=== PATIENT | male | born 1985 | race African-American/Black ===

== ENCOUNTER 2016-08-26 13:26 | Emergency (ER) ==
[2016-08-26] MEDS ORDERED: NORCO-10 PO ONE (13:49)
--- NOTE | 2016-08-26 13:56 | PROVIDER DOCUMENTATION ---
HPI-Musculoskeletal Pain/Inj - GENERAL Chief Complaint: Extremity Injury Stated Complaint: EXREMITY INJURY Time Seen by Provider: 08/26/16 13:44 Source: patient - HX OF PRESENT ILLNESS-MUSKULOSKELTAL Nature of Presenting Problem: Pt is 31 y/o M presents to the ED with R hand pain. Pt states was helping move furniture and furniture fell on top of R hand. 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 Quality of Pain: reports: aching Severity in ED: mild Onset/Duration: just prior to arrival Timing: still present, intermittent Modifying Factors: improves with: nothing Any recent injury?: Yes (direct blow ) Locality of Occurance: Home Similar Symptoms Previously?: No Recently seen or treated by another doctor?: No - UPPER EXTREMITY PAIN/INJURY Extremities Pain Location: hand: right (pain ) Context / Method of Injury: reports: direct blow Associated Symptoms: reports: weakness in upper ext (R hand). denies: muscle spasms, numbness in upper ext, sensory/motor loss, tingling in upper ext Review of Systems - Adult - REVIEW OF SYSTEMS - ADULT Constitutional: denies: chills, fever Eyes: denies: blurred vision, double vision Ears, Nose, Mouth & Throat: denies: ear pain, nose pain, throat pain Cardiovascular: denies: chest pain, heart murmur, irregular heart rate Respiratory: denies: cough, shortness of breath, wheezing Gastrointestinal: denies: abdominal pain, diarrhea, nausea, vomiting Genitourinary: denies: dysuria, hematuria Musculoskeletal: reports: other (R hand pain). denies: bone pain, joint pain, neck pain Integumentary: denies: hives, itching Neurological: denies: dizziness/vertigo, headache/migraines Psychiatric: reports: no symptoms reported Endocrine: reports: no symptoms reported Hematologic/Lymphatic: reports: no symptoms reported Allergic/Immunologic: reports: no symptoms reported All Other Systems: Reviewed and Negative Past History - Adult - PAST MEDICAL HISTORY-ADULT Review of Records: reports: Nursing Assessment Review, Medications Reviewed, Social history reviewed & non-contributory. Major Childhood Illnesses: reports: denies history Cardiovascular: reports: denies history Respiratory: reports: asthma Gastrointestinal: reports: denies history Obstetrical/Gynecological: reports: denies history Genitourinary: reports: denies history Musculoskeletal: reports: denies history Neurological: reports: denies history Endocrine/Immune: reports: denies history Other Conditions: reports: denies history - PRIOR SURGERIES/PROCEDURES Surgical/Procedure History: reports: none - IMMUNIZATION STATUS Childhood Immunizations: See Nurse Assessment Flu Vaccine: See Nurse Assessment - FAMILY HISTORY Family History: reviewed, not pertinent - SOCIAL HISTORY Smoking: cigarettes, greater than 1 pack/day Provider spent 3-5 mins advising pt. on dangers of tobacco.: Discussed manners to quit use, and f/u contacts for add'l counseling. Substance Use: denies Living Situation: family Physical Exam-Injury Related - Physical Exam-Injury Related Initial Vital Signs Reviewed: Yes General Appearance: appears well, alert, mild distress Eyes: PERRL/EOMI, pink conjunctivae, fundi clear, no AV nicking Head, Ears, Nose, Mouth & Throat: normocephalic/atraumatic, moist mucous membranes, normal ENT inspection, TMs normal, pharynx normal Neck: non-tender, full range of motion, supple, normal inspection Respiratory: chest non-tender, lungs clear, normal breath sounds, no pleuratic chest pain, no respiratory distress, no accessory muscle use Cardiovascular: normal peripheral pulses, regular rate, rhythm, no edema, no gallop, no JVD, no murmur Abdominal Exam: normal bowel sounds, non tender, soft, no organomegaly, no pulsatile mass Lymphatic: no adenopathy Back Exam: normal inspection, no CVA tenderness, no vertebral tenderness Extremity: normal range of motion, normal gait, no pedal edema, no calf tenderness, deformity (R hand), erythema (R hand), swelling (R hand and wrist), tenderness (R hand), other (painful ROM to R hand) Integumentary: normal color, warm/dry Neurologic: grossly normal Psych/Mental Status: normal mood/affect, oriented x 3 Progress - PLAN OF CARE/RESULTS Progress/Plan/Lab Results: Orders Category Date Time Status HAND COMPLETE RIGHT [RAD] Stat Exams 08/26/16 13:39 Ordered Hydrocodone/APAP 10 mg/325 mg [[place]-10] Med 08/26/16 13:49 Discontinued 1 each PO NOW ONE Vital Signs - 24 hr 08/26/16 13:36 Pulse Rate 69 Respiratory 18 Rate Blood Pressure 132/75 O2 Sat by Pulse 99 Oximetry - XRAY 1 XRAY: Right XRAY Study: Hand Impression: Abnormal XRAY Interpretation: fx 5th metacarpal per Dr. Singh - CONSULTS/PCP/HOSPITALIST Notification #1 *Consult/PCP/Hospitalist*: Dr. Bell's nurse Time Discussed: 14:08 (Nurse statse follow up in office ) Reason/Comments: Dr. Singh consults with Dr. Bell's nurse. Consult Disposition: F/U in office Departure - Departure Time of Disposition Order: 14:07 DIAGNOSIS: Fracture of fifth metacarpal bone of right hand Qualifiers: Encounter type: initial encounter Fracture type: closed Metacarpal location: other portion of metacarpal Fracture alignment: nondisplaced Qualified Code(s): S62.396A - Other fracture of fifth metacarpal bone, right hand, initial encounter for closed fracture Disposition: HOME 01 Certified Medical Emergency: Emergent Condition: Stable Additional Instructions: ED Follow Up Instructions: You have been treated by a care provider in the Emergency Department. These instructions are being provided to you so you can have an understanding of how to care for yourself upon discharge. Upon discharge from the Emergency Department, you are responsible for making arrangements for follow-up care by a physician of your choice. Take all prescribed medications as directed. Return to the Emergency Department immediately for any new or worsening symptoms. You may call the Physician Referral phone number at [phone] to obtain a list of Physicians who are taking new patients. Prescriptions: Hydrocodone/Acetaminophen [[place] 5-325 Tablet] 1 each PO Q4-6H PRN PRN #20 tablet PRN Reason: Pain Referrals: None,PCP [Primary Care Provider] - Jacinta Bell MD [STAFF PHYSICIAN] - (Pt has appointment at 8 in the morning. ) Attestation - Scribe Verification/Attestation Scribe:: Page Dailey Acting as Scribe for:: Robles Singh Scribe documention review:: This chart was documented by a scribe and accurately reflects the service the provider performed and the decisions made by the provider.
[2016-08-26 14:33] VITALS: BP 145/77
--- NOTE | 2016-08-26 17:54 | Diag Imaging Result Document ---
PROCEDURE NAME: HAND COMPLETE RIGHT - 08/26/2016 FINDINGS: There is comminuted mildly displaced fracture of the base of the 5th metacarpal. This is intra-articular. There is also apparently nondisplaced transverse fracture at the base of the 4th metacarpal. IMPRESSION: Fractures at the bases of the 4th and 5th metacarpal.
== END 2016-08-26 14:33 | disposition home or self-care (01) ==
LOC: P.ED 13:26
DX: S62.316A Displaced fracture of base of fifth metacarpal bone, right hand, initial encounter for closed fracture (principal); S62.344A Nondisplaced fracture of base of fourth metacarpal bone, right hand, initial encounter for closed fracture; M79.641 Pain in right hand; M62.81 Muscle weakness (generalized); M21.941 Unspecified acquired deformity of hand, right hand; L53.9 Erythematous condition, unspecified; R22.31 Localized swelling, mass and lump, right upper limb; F17.210 Nicotine dependence, cigarettes, uncomplicated; Z71.6 Tobacco abuse counseling; W19.XXXA Unspecified fall, initial encounter; W23.0XXA Caught, crushed, jammed, or pinched between moving objects, initial encounter
CPT/HCPCS: 99283